=== PATIENT | female | born 2000 | race Caucasian/White ===

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

== ENCOUNTER 2024-07-04 19:43 | Emergency (ER) | payer MEDICAID, OTHER ==
[~2024-07-04] VITALS: Ht 152.4 cm; Wt 80.7 kg
[2024-07-04 19:56] VITALS: O2SAT 99
== END 2024-07-05 00:18 | disposition left against medical advice (07) ==
LOC: ER 19:43
DX: R50.9 Fever, unspecified (principal); R11.0 Nausea; Z53.21 Procedure and treatment not carried out due to patient leaving prior to being seen by health care provider
CPT/HCPCS: A4606; A4663